=== PATIENT | male | born 1995 | race Caucasian/White ===

== ENCOUNTER 2020-04-01 12:15 | Emergency (ER) | payer OTHER, SELFPAY ==
[2020-04-01] MEDS ORDERED: HYDROcodone/Acetaminophen 7.5/325 mg Tablet ONE (12:40)
--- NOTE | 2020-04-01 12:58 | RAD ---
EXAM: XR Wrist 3 Rt View STANDARD PROVIDED CLINICAL HISTORY: Pain COMPARISON: None FINDINGS: Comminuted base of fifth metacarpal fracture, likely intra-articular and displaced. No evidence for f racture involving the wrist. Alignment appears otherwise anatomic. Joint spaces appear preserved. IMPRESSION: Fifth metacarpal base fracture.
--- NOTE | 2020-04-01 12:59 | RAD ---
EXAM: XR Hand Rt 3 View STANDARD PROVIDED CLINICAL HISTORY: Pain COMPARISON: None FINDINGS: Comminuted intra-articular fracture involving the base of the fifth metacarpal with mild dorsal assoc iated displacement. No additional fracture is evident. Alignment appears otherwise anatomic. Joint spaces appear preserved. IMPRESSION: Fifth metacarpal base fracture.
== END 2020-04-01 14:25 | disposition home or self-care (01) ==
LOC: ERS 12:15
DX: S62.316A Displaced fracture of base of fifth metacarpal bone, right hand, initial encounter for closed fracture (principal); F17.220 Nicotine dependence, chewing tobacco, uncomplicated; V29.9XXA Motorcycle rider (driver) (passenger) injured in unspecified traffic accident, initial encounter
CPT/HCPCS: 29125